=== PATIENT | male | born 1970 | race Caucasian/White ===

== ENCOUNTER → 2016-06-24 | Outpatient (CLI) | payer OTHER ==
[~2016-06-24] MED LIST: ALBUTEROL0.09 MG/A2 INH; ALBUTEROL2.5 MG/0.5 INH; AMITRIPTYLINE25 MG PO; AMOXIL500 MG PO; CLARITIN-D 12 H1 TAB PO; FLEXERIL5 MG PO; FLOVENT0.044 MG/A IH; KEFLEX500 MG PO; METHADONE10 MG PO; NAPROSYN500 MG PO; NEURONTIN300 MG PO; POLYSPORIN OINT15 GM T; PREDNICOT20 MG PO; PREDNISONE20 MG PO; SEPTRA DS 800 M1 TAB PO; SPIRIVA18 MCG INH; TRAMADOL HCL50 MG PO; VIBRAMYCIN100 MG PO; VICODIN 500 MG-1 TAB PO; ZITHROMAX Z PA250 MG PO
== END | disposition home or self-care (01) ==
LOC: RAD 15:36
DX: R05 Cough (principal); R07.89 Other chest pain; R06.02 Shortness of breath; F17.200 Nicotine dependence, unspecified, uncomplicated; Z87.01 Personal history of pneumonia (recurrent)

== ENCOUNTER → 2016-08-31 | Outpatient (CLI) | payer OTHER | END | disposition home or self-care (01) | LOC: ORTHO 02:01 | DX: M47.892 Other spondylosis, cervical region (principal); M25.511 Pain in right shoulder; M48.02 Spinal stenosis, cervical region ==

== ENCOUNTER → 2016-11-03 | Outpatient (CLI) | payer OTHER | END | disposition home or self-care (01) | LOC: CT 08:00 | DX: J94.8 Other specified pleural conditions (principal); M47.894 Other spondylosis, thoracic region ==

== ENCOUNTER → 2016-11-06 | Outpatient (CLI) | payer OTHER ==
[2016-11-07 05:08] LABS: ALPHA-1-ANTITRYPSIN, SERUM 126 mg/dL (90-200)
== END | disposition home or self-care (01) ==
LOC: LAB 08:59
PROVIDERS: Internal Medicine Critical Care Medicine
DX: J44.9 Chronic obstructive pulmonary disease, unspecified (principal)

== ENCOUNTER → 2016-11-09 | Outpatient (CLI) | payer OTHER | END | disposition home or self-care (01) | LOC: MRI 13:44 | DX: M54.12 Radiculopathy, cervical region (principal); M48.02 Spinal stenosis, cervical region ==

== ENCOUNTER → 2017-04-09 | Outpatient (CLI) | payer OTHER | END | disposition home or self-care (01) | LOC: RAD 08:29 | DX: M54.5 Low back pain (principal); M54.2 Cervicalgia ==

== ENCOUNTER 2017-06-08 14:43 | Emergency (ER) | payer OTHER ==
[~2017-06-08] VITALS: Ht 182.8 cm; Wt 77.1 kg
[2017-06-08] MEDS ORDERED: PENICILLIN-VK500 MG PO (15:28)
== END 2017-06-08 15:41 | disposition home or self-care (01) ==
LOC: ED 14:43
DX: K02.9 Dental caries, unspecified (principal); K04.7 Periapical abscess without sinus; K08.89 Other specified disorders of teeth and supporting structures; Z79.899 Other long term (current) drug therapy

== ENCOUNTER 2017-07-09 20:19 | Emergency (ER) | payer OTHER ==
[~2017-07-09] VITALS: Ht 182.8 cm; Wt 77.1 kg
[~2017-07-09 20:19] MED LIST changes: +PENICILLIN-VK500 MG PO
[2017-07-09] MEDS ORDERED: KEFLEX500 M1 PO (20:27)
[2017-07-09] MEDS ORDERED: NAPROSYN500 MG PO (20:27)
== END 2017-07-09 21:01 | disposition home or self-care (01) ==
LOC: ED 20:19
DX: S81.832A Puncture wound without foreign body, left lower leg, initial encounter (principal); Z23 Encounter for immunization; W22.8XXA Striking against or struck by other objects, initial encounter; Y93.89 Activity, other specified; Y92.89 Other specified places as the place of occurrence of the external cause; Y99.9 Unspecified external cause status

== ENCOUNTER → 2017-07-16 | Outpatient (CLI) | payer OTHER ==
[~2017-07-16] MED LIST changes: +KEFLEX500 M1 PO
== END | disposition home or self-care (01) ==
LOC: US 14:23
DX: M79.662 Pain in left lower leg (principal); T14.8XXA Other injury of unspecified body region, initial encounter; X58.XXXA Exposure to other specified factors, initial encounter; Y93.89 Activity, other specified; Y92.89 Other specified places as the place of occurrence of the external cause; Y99.8 Other external cause status

== ENCOUNTER 2017-10-25 21:17 | Emergency (ER) | payer OTHER ==
[~2017-10-25] VITALS: Ht 182.8 cm; Wt 77.1 kg
--- NOTE | ~2017-10-25 | EKG ---
[place], [place] ELECTROCARDIOGRAM REPORT NAME: RAMILA GAONA UNIT #: [id number] ROOM: DOCTOR: EPIPHANY DRAFT REPORT BIRTHDATE: [birth year] [facility] Test Date: 2017-10-25 Test Time: 21:46:07 Pat Name: RAMILA GAONA Department: er Room: 14 Gender: M Captain Of Guards: Peter Rivera : 1970 Requested By: DAVID ASHER PA-C Order Number: [id number] Reading MD: Severiano Betancourt MD Measurements Intervals [place] Rate: 66 P: 64 DE: 131 QRS: 74 QRSD: 96 T: 60 QT: 400 QTc: 420 Interpretive Statements Sinus rhythm ST elev, probable normal early repol pattern Electronically Signed On 10-26-2017 20:00:28 PDT by Severiano Betancourt MD CM:EKGRPT:ELECTROCARDIOGRAM REPORT [id number] DAVID HOPSON DRAFT REPORT DAVID ASHER PA-C
[2017-10-25 21:46] LABS: BASO # 0.1 10*3/uL (0.0-0.1); BASO % 0.9 % (0.0-1.0); EOS # 0.3 10*3/uL (0.0-0.4); EOS % 3.5 % (1.0-4.0); HEMATOCRIT 41.1 % (42.0-52.0); HEMOGLOBIN 13.5 g/dl (14.0-18.0); LYMPH % 37.5 % (27.0-41.0); MEAN CELL VOLUME 94.5 fl (80.0-94.0); MEAN CORPUSCULAR HGB CONC 32.8 g/dl (33.0-37.0); MEAN PLATELET VOLUME 12.2 fl (9.6-12.3); MONO # 0.7 10*3/uL (0.1-1.0); MONO % 8.4 % (3.0-9.0); NEUT % 49.6 % (47.0-73.0); PLATELET COUNT AUTOMATED 178 10*3/uL (130-400); RED BLOOD COUNT 4.35 10*6/uL (4.50-5.90); RED CELL DISTRI WIDTH 13.2 % (0-14.5)
[2017-10-25 22:03] LABS: ALBUMIN 3.6 gm/dl (3.1-4.5); ALKALINE PHOSPHATASE 49 U/L (45-117); BUN 23 mg/dl (7-24); CHLORIDE 107 mmol/L (98-107); CREATININE 1.12 mg/dL (0.70-1.30); POTASSIUM 4.3 mmol/L (3.5-5.1); SGOT/AST 18 IU/L (3-35); SGPT/ALT 22 U/L (12-78); SODIUM 142 mmol/L (136-145); TOTAL PROTEIN 6.7 gm/dL (6.4-8.2)
[2017-10-25 22:11] LABS: TROPONIN I < 0.015 ng/ml (<0.045)
[2017-10-25 22:16] LABS: ACT PARTIAL THROMBO TIME 23.2 SECONDS (20.8-31.5); INTERNATIONAL NORM RATIO 0.9 (2.0-3.5)
[2017-10-25] MEDS ORDERED: ANAPROX DS550 MG PO (22:32)
== END 2017-10-25 22:45 | disposition home or self-care (01) ==
LOC: ED 21:17
PROVIDERS: Physician Assistant
DX: M94.0 Chondrocostal junction syndrome [Tietze] (principal); J44.9 Chronic obstructive pulmonary disease, unspecified

== ENCOUNTER 2019-02-01 15:45 | Emergency (ER) | payer OTHER ==
[~2019-02-01] VITALS: Ht 182.8 cm; Wt 81.6 kg
[~2019-02-01 15:45] MED LIST changes: +ANAPROX DS550 MG PO
[2019-02-01] MEDS ORDERED: HYDROCODONE-AC1 EAC1 PO (16:19)
[2019-02-01 16:22] LABS: BASO # 0.1 10*3/uL (0.0-0.1); BASO % 0.8 % (0.0-1.0); EOS # 0.3 10*3/uL (0.0-0.4); EOS % 3.5 % (1.0-4.0); HEMATOCRIT 42.5 % (42.0-52.0); HEMOGLOBIN 14.1 g/dl (14.0-18.0); MEAN CORPUSCULAR HGB 31.2 pg (27.0-31.0); MEAN CORPUSCULAR HGB CONC 33.2 g/dl (33.0-37.0); MEAN PLATELET VOLUME 11.5 fl (9.6-12.3); MONO # 0.8 10*3/uL (0.1-1.0); MONO % 8.2 % (3.0-9.0); NEUT # 5.2 10*3/uL (2.3-7.9); NEUT % 55.2 % (47.0-73.0); PLATELET COUNT AUTOMATED 196 10*3/uL (130-400); RED BLOOD COUNT 4.52 10*6/uL (4.50-5.90); WHITE BLOOD COUNT 9.5 10*3/uL (4.8-10.8)
[2019-02-01 16:32] LABS: ACT PARTIAL THROMBO TIME 27.1 SECONDS (20.0-32.1); INTERNATIONAL NORM RATIO 0.9 (2.0-3.5)
[2019-02-01 16:42] LABS: ALBUMIN 3.7 gm/dl (3.1-4.5); ALKALINE PHOSPHATASE 60 U/L (45-117); BUN 17 mg/dl (7-24); CHLORIDE 108 mmol/L (98-107); CREATININE 1.08 mg/dL (0.70-1.30); POTASSIUM 3.9 mmol/L (3.5-5.1); SGOT/AST 18 IU/L (3-35); SGPT/ALT 21 U/L (12-78); SODIUM 139 mmol/L (136-145); TOTAL PROTEIN 7.2 gm/dL (6.4-8.2)
[2019-02-01 16:46] LABS: TROPONIN I < 0.015 ng/ml (<0.045)
[2019-02-01] MEDS ORDERED: PREDNISONE20 M1 PO (19:33)
== END 2019-02-01 19:40 | disposition home or self-care (01) ==
LOC: ED 15:45
PROVIDERS: Physician Assistant
DX: M54.12 Radiculopathy, cervical region (principal); R07.89 Other chest pain

== ENCOUNTER 2020-01-22 13:09 | Emergency (ER) | payer OTHER ==
[~2020-01-22 13:09] MED LIST changes: +HYDROCODONE-AC1 EAC1 PO; +PREDNISONE20 M1 PO
[2020-01-22] MEDS ORDERED: DOXYCYCLINE100 M3 PO (14:20)
[2020-01-22] MEDS ORDERED: IBUPROFEN600 MG PO (14:20)
== END 2020-01-22 14:34 | disposition home or self-care (01) ==
LOC: ED 13:09
DX: J34.0 Abscess, furuncle and carbuncle of nose (principal); Z79.899 Other long term (current) drug therapy

== ENCOUNTER → 2020-06-26 | Outpatient (CLI) | payer OTHER ==
[~2020-06-26] MED LIST changes: +DOXYCYCLINE100 M3 PO; +IBUPROFEN600 MG PO
== END | disposition home or self-care (01) ==
LOC: RAD 09:38
PROVIDERS: ATTEND Physician Assistant
DX: J43.9 Emphysema, unspecified (principal); J98.11 Atelectasis; Z12.5 Encounter for screening for malignant neoplasm of prostate; F17.200 Nicotine dependence, unspecified, uncomplicated; K04.7 Periapical abscess without sinus; Z12.11 Encounter for screening for malignant neoplasm of colon; W57.XXXA Bitten or stung by nonvenomous insect and other nonvenomous arthropods, initial encounter

== ENCOUNTER 2021-01-03 16:54 | Emergency (ER) | payer OTHER ==
[~2021-01-03] VITALS: Ht 182.8 cm; Wt 81.6 kg
[2021-01-03] MEDS ORDERED: SPIRIVA RESPIMAT4 G1 INH (17:02)
[2021-01-03] MEDS ORDERED: FLUTICASONE-SA1 EAC4 INH (17:03)
== END 2021-01-03 19:32 | disposition home or self-care (01) ==
LOC: ED 16:54
DX: S69.92XA Unspecified injury of left wrist, hand and finger(s), initial encounter (principal); F17.200 Nicotine dependence, unspecified, uncomplicated; Z79.899 Other long term (current) drug therapy; W18.39XA Other fall on same level, initial encounter; Y93.89 Activity, other specified; Y92.89 Other specified places as the place of occurrence of the external cause; Y99.8 Other external cause status

== ENCOUNTER 2022-10-21 14:23 | Emergency (ER) | payer OTHER ==
[~2022-10-21] VITALS: Ht 182.8 cm; Wt 70.3 kg
[~2022-10-21 14:23] MED LIST changes: +FLUTICASONE-SA1 EAC4 INH; +SPIRIVA RESPIMAT4 G1 INH
== END 2022-10-21 16:22 | disposition home or self-care (01) ==
LOC: ED 14:23
DX: S20.211A Contusion of right front wall of thorax, initial encounter (principal); R06.02 Shortness of breath; Z98.890 Other specified postprocedural states; Z90.89 Acquired absence of other organs; W01.198A Fall on same level from slipping, tripping and stumbling with subsequent striking against other object, initial encounter; Y93.89 Activity, other specified; Y92.59 Other trade areas as the place of occurrence of the external cause; Y99.0 Civilian activity done for income or pay

== ENCOUNTER → 2022-10-30 | Outpatient (CLI) | payer OTHER | END | disposition home or self-care (01) | LOC: RAD 12:54 | PROVIDERS: ATTEND Physician Assistant | DX: S22.31XA Fracture of one rib, right side, initial encounter for closed fracture (principal); R07.81 Pleurodynia; X58.XXXA Exposure to other specified factors, initial encounter; Y93.89 Activity, other specified; Y92.89 Other specified places as the place of occurrence of the external cause; Y99.8 Other external cause status ==